=== PATIENT | male | born 1985 | race Caucasian/White ===

== ENCOUNTER 2023-03-17 03:07 | Emergency (ER) | payer MEDICAID ==
[2023-03-17 05:52] VITALS: BP 116/91; PULSE 64; RESP 18; TEMP 97.4
== END 2023-03-17 05:46 | disposition left against medical advice (07) ==
LOC: ER 03:07
DX: J02.9 Acute pharyngitis, unspecified (principal); M25.562 Pain in left knee; M25.561 Pain in right knee; Z53.21 Procedure and treatment not carried out due to patient leaving prior to being seen by health care provider
CPT/HCPCS: 99281